=== PATIENT | male | born 1945 ===

== ENCOUNTER 2021-06-10 08:00 | Day surgery (SDC) | payer OTHER ==
[~2021-06-10] VITALS: Ht 172.7 cm; Wt 92.5 kg
[~2021-06-10 08:00] MED LIST: CARDURA8 MG PO; DIOVA PO; DIOVAN40 MG; HUMUL; PENTOXIFYLLINE400 MG; SINGULAIR10 MG PO; TRENTRAL PO
== END 2021-06-10 09:00 | disposition home or self-care (01) ==
LOC: CIR.AMB 08:00 → EDSTATUS 09:45 → SURH 09:45 → O/R 12:10
PROVIDERS: ATTEND Surgery
DX: K62.1 Rectal polyp (principal)